=== PATIENT | female | born 1985 | race Caucasian/White ===

== ENCOUNTER 2023-11-08 22:08 | Outpatient (REF) | payer BC, SELFPAY ==
[2023-11-09 03:22] LABS: Free T4 Free Thyroxine* 0.81 ng/dL (0.70-1.85)
[2023-11-10 20:18] LABS: TPO Antibody 76.6 IU/mL (0.0-9.0); Thyroglobulin Antibody <0.9 IU/mL (0.0-4.0)
[2023-11-11 02:29] LABS: Total T3 90 ng/dL (80-200)
[2023-12-20 09:38] LABS: Thyroid Peroxidase (TPO) Ab 76.6
== END 2023-11-08 22:09 | disposition home or self-care (01) ==
LOC: NPINS 22:08
PROVIDERS: PCP Physician Assistant Medical; Visit Provider Physician Assistant
DX: E03.9 Hypothyroidism, unspecified (principal)
CPT/HCPCS: 84439; 84443; 84480; 86376; 86800

== ENCOUNTER 2025-01-23 07:44 | Outpatient (CLI) | payer OTHER, SELFPAY ==
[2025-01-23 13:25] LABS: Basophils Absolute Auto 0.03 K/uL (0.00-0.30); Basophils Percent Auto 0.5 % (0.0-3.0); Eosinophils Absolute Auto 0.26 K/uL (0.00-0.50); Eosinophils Percent Auto 4.4 % (0.0-7.0); Hematocrit 43.7 % (33.0-51.0); Hemoglobin* 14.2 gm/dL (12.0-16.0); Immature Granulocytes Abs Auto 0.01 K/uL (0.00-0.30); Immature Granulocytes Pct Auto 0.2 %; Lymphocytes Absolute Auto 1.89 K/uL (0.90-2.90); Lymphocytes Percent Auto 32.2 % (20-44); Mean Corpuscular HGB Conc 33 gm/dL (32-36); Mean Corpuscular Hemoglobin 31 pg (26-34); Mean Corpuscular Volume 94 fL (80-100); Monocytes Percent Auto 5.8 % (0.0-11.0); Neutrophils Absolute Auto 3.34 K/uL (1.7-7.0); Neutrophils Percent Auto 56.9 % (42.0-72.0); Platelet Count* 368 K/uL (140-440); RDW Coefficient of Variation % 12.6 % (11.5-15.5); Red Blood Count 4.64 m/uL (4.00-5.20); White Blood Count* 5.87 K/uL (4.50-11.00)
[2025-01-23 13:49] LABS: Slide Review Reflex No
[2025-01-23 14:08] LABS: Hemoglobin A1C* 5.2 % (0-5.6)
[2025-01-23 14:30] LABS: Erythrocyte SedimentationRate* 3 mm/hr (2-20)
[2025-01-23 14:35] LABS: Iron* 172 ug/dL (37-170)
[2025-01-23 14:44] LABS: Percent Iron Saturation 49 % (20-50); Total Iron Binding Capacity 352 ug/dL (265-497)
[2025-01-23 14:48] LABS: Cholesterol* 222 mg/dL (90-199); HDL Cholesterol* 85 mg/dL (>=50); LDL Cholesterol Calculated 115 mg/dL (<100); Triglycerides* 111 mg/dL (40-149)
[2025-01-23 14:55] LABS: Free T4 Free Thyroxine* 0.73 ng/dL (0.70-1.85)
[2025-01-23 15:38] LABS: Vitamin B12* 353 pg/mL (243-894)
[2025-01-24 11:09] LABS: Thyroid Peroxidase (TPO) Ab 261.8 IU/mL (0.0-9.0)
[2025-01-24 22:13] LABS: Insulin, Random 11 uIU/mL
[2025-01-25 04:16] LABS: CRP, High Sensitivity 2.2 mg/L (<=3.0)
[2025-01-25 04:22] LABS: Free T3 2.3 pg/mL (2.5-4.3)
== END 2025-01-23 07:45 | disposition home or self-care (01) ==
LOC: NPINS 07:45
PROVIDERS: Visit Provider Registered Nurse Home Health
DX: Z13.0 Encounter for screening for diseases of the blood and blood-forming organs and certain disorders involving the immune mechanism (principal)
CPT/HCPCS: 80061; 82607; 82746; 83036; 83525; 83540; 83550; 84439; 84443; 84481; 85025; 85651; 86141; 86376; 86800